=== PATIENT | male | born 1980 | race Caucasian/White ===

== ENCOUNTER 2016-12-26 08:43 | Emergency (ER) | payer OTHER ==
[~2016-12-26 08:43] MED LIST: Z.0.NO CURRENT MEDS
[2016-12-26 08:55] VITALS: BP 144/86; PULSE 82; RESP 20; TEMP 98.8; O2SAT 100
[2016-12-26] MEDS ORDERED: SODIUM CHLORIDE 0.9% FLUSH 5 ML FLUSH IVF PRN (09:00)
[2016-12-26] MEDS ORDERED: KETOROLAC TROMETHAMINE 30 MG/ML (IVP) VIAL IV PUSH ONE (09:00)
--- NOTE | 2016-12-26 09:06 | PD ---
HPI Chief Complaint: Chest Pain Time Seen by Provider: 08:59 Travel History International Travel<30 days: No Contact w/Intl Traveler<30days: No Traveled to known affect area: No History of Present Illness HPI This is a 36-year-old male who reports that for a week and a half he's had chest discomfort in the center of his chest, sharp and stabbing, moderate severity, worse with movement. 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 He says he's had some shortness of breath with it and has been nauseous the entire week and a half. He went to an urgent care 1 week ago when he says they did nothing for him. He was prescribed Flonase, Claritin and an antibiotic which he has been taking but his pain is not getting that her. He says he has a productive cough with some yellow sputum but no fevers or chills. He does not smoke. He is otherwise healthy and neither his mother or father have had heart attacks. PFSH Past Medical History Arthritis: No Asthma: No Autoimmune Disease: No Blood Disorders: No Anxiety: No Depression: No Heart Rhythm Problems: No Cancer: No High Cholesterol: No Chemotherapy: No Chest Pain: No Congestive Heart Failure: No COPD: No Cerebrovascular Accident: No Diabetes: No Diminished Hearing: No Gastrointestinal Disorders: Yes (abdominal pain has been intermittent for a few years) GERD: No Glaucoma: No Headaches: No Hepatitis: No Hiatal Hernia: No Hypertension: No Kidney Stones: No Myocardial Infarction: No Radiation Therapy: No Renal Failure: No Seizures: No Sleep Apnea: No Thyroid Disease: No Ulcer: No Past Surgical History Abdominal Surgery: No AICD: No Cardiac Surgery: No Ear Surgery: No Endocrine Surgery: No Eye Surgery: No Genitourinary Surgery: Yes (testicular surgery as a young child ) Gynecologic Surgery: Yes (had testicles operated on x 2) Oral Surgery: No Pacemaker: No Thoracic Surgery: No Other Surgery: Yes (TESTICLULAR SX X2 TO DROP TESTES - CHILDHOOD) Social History Alcohol Use: No Tobacco Use: No Substance Use: No Allergies-Medications (Allergen,Severity, Reaction): Coded Allergies: No Known Allergies (Verified , 12/26/16) Reported Meds & Prescriptions Reported Meds & Active Scripts Active No Active Prescriptions or Reported Medications Review of Systems Except as stated in HPI: all other systems reviewed are Neg Physical Exam Narrative GENERAL:Well appearing, no acute distress SKIN: Warm and dry. HEAD: Atraumatic. Normocephalic. EYES: Pupils equal and round. No injection or drainage. ENT: Moist mucous membranes NECK: Trachea midline. CARDIOVASCULAR: Regular rate and rhythm. No murmur appreciated. RESPIRATORY: Clear to auscultation. Breath sounds equal bilaterally. GASTROINTESTINAL: Abdomen soft, non-tender, nondistended. MUSCULOSKELETAL: No obvious deformities. NEUROLOGICAL: Awake and alert. No obvious cranial nerve deficits. Moving all extremities. PSYCHIATRIC: Appropriate mood and affect; insight and judgment normal. Data Data Last Documented VS Vital Signs Date Time Temp Pulse Resp B/P Pulse Ox O2 Delivery O2 Flow Rate FiO2 12/26/16 10:17 55 20 120/83 99 12/26/16 09:18 Nasal Cannula 2 12/26/16 08:55 98.8 Orders Electrocardiogram (12/26/16 08:59) Complete Blood Count With Diff (12/26/16 08:59) Comprehensive Metabolic Panel (12/26/16 08:59) Troponin I (12/26/16 08:59) Chest, Single Ap (12/26/16 08:59) Ecg Monitoring (12/26/16 08:59) Bilateral Bp Monitoring (12/26/16 08:59) Iv Access Insert/Monitor (12/26/16 08:59) Oximetry (12/26/16 08:59) Oxygen Administration (12/26/16 08:59) Sodium Chloride 0.9% Flush (Ns Flush) (12/26/16 09:00) Ketorolac Inj (Toradol Inj) (12/26/16 09:00) Labs Laboratory Tests Test 12/26/16 09:10 White Blood Count 8.9 TH/MM3 Red Blood Count 5.30 MIL/MM3 Hemoglobin 15.0 GM/DL Hematocrit 44.3 % Mean Corpuscular Volume 83.5 FL Mean Corpuscular Hemoglobin 28.3 PG Mean Corpuscular Hemoglobin 33.9 % Concent Red Cell Distribution Width 12.4 % Platelet Count 283 TH/MM3 Mean Platelet Volume 8.7 FL Neutrophils (%) (Auto) 74.1 % Lymphocytes (%) (Auto) 17.9 % Monocytes (%) (Auto) 6.7 % Eosinophils (%) (Auto) 0.8 % Basophils (%) (Auto) 0.5 % Neutrophils # (Auto) 6.6 TH/MM3 Lymphocytes # (Auto) 1.6 TH/MM3 Monocytes # (Auto) 0.6 TH/MM3 Eosinophils # (Auto) 0.1 TH/MM3 Basophils # (Auto) 0.0 TH/MM3 CBC Comment DIFF FINAL Differential Comment Sodium Level 140 MEQ/L Potassium Level 4.0 MEQ/L Chloride Level 104 MEQ/L Carbon Dioxide Level 27.3 MEQ/L Anion Gap 9 MEQ/L Blood Urea Nitrogen 16 MG/DL Creatinine 1.00 MG/DL Estimat Glomerular Filtration 84 ML/MIN Rate Random Glucose 105 MG/DL Calcium Level 8.6 MG/DL Total Bilirubin 0.7 MG/DL Aspartate Amino Transf 16 U/L (AST/SGOT) Alanine Aminotransferase 42 U/L (ALT/SGPT) Alkaline Phosphatase 68 U/L Troponin I LESS THAN 0.02 NG/ML Total Protein 7.6 GM/DL Albumin 3.8 GM/DL MDM Medical Decision Making Medical Screen Exam Complete: Yes Emergency Medical Condition: Yes Interpretation(s) Afebrile, no tachycardia, hypertensive No leukocytosis Electrolytes are reassuring Troponin is normal Chest x-ray: No acute process EKG: Normal sinus rhythm with no ST changes Differential Diagnosis Bronchitis, costochondritis, pleural effusion, pulmonary embolism, acute coronary syndrome, pericarditis Narrative Course This is a 36-year-old male who presents to the emergency department with chest pain ever since he had an episode of bronchitis earlier this week. He is still on antibiotics but he says his pain is worsening and he is having trouble working. He is placed on a monitor and an IV was established. Labs are obtained which were all reassuring including normal cardiac enzymes. He says his pain has been constant for a week and a half so I would expect if this were acute coronary syndrome he would have an abnormal troponin by now. I think the patient can safely be discharged with anti-inflammatories. Diagnosis Primary Impression: Acute costochondritis Patient Instructions: General Instructions Additional Instructions: If you develop severe chest pain, shortness of breath, sweating, lightheadedness , dizziness or difficulty breathing return to the emergency department immediately. Followup with your primary care physician in 2-3 days if your symptoms are not resolved. Med/Other Pt SpecificInfo: Prescription(s) given Scripts Naproxen 500 Mg Duk363 Mg PO BID PRN (PAIN SCALE 4 TO 10) #20 TAB Prov:Madison Rivero MD 12/26/16 Disposition: 01 DISCHARGE HOME Condition: Stable Madison Rivero MD Dec 26, 2016 09:06
[2016-12-26 09:18] VITALS: BP_SYST 112; BP_SYST 139; BP_DIAS 77; BP_DIAS 86; PULSE 66; RESP 20; O2SAT 97; O2SAT 99
[2016-12-26 09:22] LABS: AUTOMATED NEUTROPHIL # 6.6 TH/MM3 (1.8-7.7); BASOPHIL % 0.5 % (0.0-2.0); EOSINOPHIL # 0.1 TH/MM3 (0-0.4); EOSINOPHIL % 0.8 % (0.0-4.0); HEMATOCRIT 44.3 % (39.0-51.0); HEMO FLAGS DIFF FINAL; LYMPH % 17.9 % (9.0-44.0); LYMPHOCYTE # 1.6 TH/MM3 (1.0-4.8); MEAN CELL VOLUME 83.5 FL (80.0-100.0); MEAN CORPUSCULAR HEMOGLOBIN 28.3 PG (27.0-34.0); MEAN CORPUSCULAR HGB CONC 33.9 % (32.0-36.0); MONO % 6.7 % (0.0-8.0); NEUT % 74.1 % (16.0-70.0); PLATELET COUNT 283 TH/MM3 (150-450); RED CELL DISTRIBUTION WIDTH 12.4 % (11.6-17.2); WHITE BLOOD COUNT 8.9 TH/MM3 (4.0-11.0)
--- NOTE | 2016-12-26 09:30 | RADHPO ---
EXAM DATE/TIME: 12/26/2016 09:04 [facility] COMPARISON: No previous studies available for comparison. INDICATIONS : Short of breath MEDICAL HISTORY : None. SURGICAL HISTORY : None. ENCOUNTER: Initial ACUITY: 2 weeks PAIN SCORE: 4/10 LOCATION: Bilateral chest FINDINGS: A single view of the chest demonstrates the lungs to be symmetrically aerated without evidence of mas s, infiltrate or effusion. The cardiomediastinal contours are unremarkable. Osseous structures are intact. CONCLUSION: No acute disease. Marty Mayfield MD FACR on December 26, 2016 at 9:28 Board Certified Radiologist. This report was verified electronically.
[2016-12-26 09:32] LABS: BLOOD UREA NITROGEN 16 MG/DL (7-18); GLOMERULAR FILTRATION RATE 84 ML/MIN (>89)
[2016-12-26 09:33] LABS: CHLORIDE 104 MEQ/L (98-107); SODIUM (NA) 140 MEQ/L (136-145)
[2016-12-26 10:17] VITALS: BP 120/83; PULSE 55; RESP 20; O2SAT 99
[2016-12-26 10:44] LABS: ALKALINE PHOSPHATASE 68 U/L (45-117); ALT (GPT) 42 U/L (12-78); ANION GAP 9 MEQ/L (5-15); AST (GOT) 16 U/L (15-37); BICARBONATE 27.3 MEQ/L (21.0-32.0); TOTAL BILIRUBIN ADULT 0.7 MG/DL (0.2-1.0)
[2016-12-26] MEDS ORDERED: NAPR500T PO (11:05)
[2016-12-26 11:14] VITALS: BP 112/74
--- NOTE | 2016-12-28 00:07 | EKG ---
Date Performed: 12/26/2016 Time Performed: 08:57:08 PTAGE: 36 years EKG: Sinus rhythm Normal ECG NO PREVIOUS TRACING DOCTOR: Akash Moreno Interpretating Date/Time 12/28/2016 00:06:36
== END 2016-12-26 11:16 | disposition home or self-care (01) ==
LOC: PHED 08:43
DX: M94.0 Chondrocostal junction syndrome [Tietze] (principal); R06.02 Shortness of breath; R11.0 Nausea; R05 Cough; Z87.19 Personal history of other diseases of the digestive system
CPT/HCPCS: 71010; 80053; 84484; 85025; 93005; 96374; 99284; J1885